=== PATIENT | female | born 1985 | race Caucasian/White ===

== ENCOUNTER → 2022-01-18 08:49 | Outpatient (BNVA) | payer MEDICAID, SELFPAY | PROVIDERS: PCP Nurse Practitioner Family; Visit Provider Nurse Practitioner Family | DX: E66.9 Obesity, unspecified (principal); F32.A Depression, unspecified; F41.9 Anxiety disorder, unspecified; G43.909 Migraine, unspecified, not intractable, without status migrainosus; J44.9 Chronic obstructive pulmonary disease, unspecified; K21.9 Gastro-esophageal reflux disease without esophagitis; T63.441A Toxic effect of venom of bees, accidental (unintentional), initial encounter; J30.2 Other seasonal allergic rhinitis; Z76.89 Persons encountering health services in other specified circumstances | CPT/HCPCS: 80053; 80061; 84443 ==

== ENCOUNTER → 2022-01-21 09:00 | Outpatient (BNVA) | payer MEDICAID, SELFPAY | PROVIDERS: PCP Nurse Practitioner Family; Referring Provider Nurse Practitioner Family; Visit Provider Surgery | DX: K21.9 Gastro-esophageal reflux disease without esophagitis (principal); R63.4 Abnormal weight loss; R10.13 Epigastric pain | CPT/HCPCS: 99203 ==

== ENCOUNTER 2022-02-13 09:25 | Emergency (ER) | payer MEDICAID, SELFPAY ==
[2022-02-13 09:32] VITALS: BP 132/76; PULSE 83; RESP 14; TEMP 36.7; O2SAT 98; BMI 33.7
--- NOTE | 2022-02-13 09:48 | ED_ITS ---
HPI - Abdominal Pain General: Chief Complaint: Abdominal Pain Stated Complaint: abd pain Time Seen by Provider: 02/13/22 09:38 Source: patient Mode of arrival: ambulatory Limitations: no limitations History of Present Illness: 37-year-old female comes in complaining of epigastric upper abdominal pain for going on for last several months is seen surgery is scheduled for an EGD previously had a cholecystectomy. She has chronic diarrhea which is unchanged denies any medication melena symptoms cough cramps no dysuria urgency or frequency. No fever sweats or chills MD elicited complaint: abdominal pain Pertinent past history: other (Chronic diarrhea) Onset (ago): month(s) Pain Consistency: intermittent Location: Epigastric Severity: moderate Quality: cramping Radiation: LUQ and RUQ Exacerbating factors: nothing Relieving factors: nothing Associated Symptoms: Reports nausea and poor appetite; Denies anorexia, belching, bloating, change in bowel habits, change in stool character, chills, coffee ground emesis, constipation, GI cramping, diarrhea, dyspepsia, dysuria, excessive flatus, fever(s), heartburn, hematochezia, hematuria, hematemesis, fecal incontinence, loose stools, melena, syncope and vomiting Review of Systems Const: Reports: change in appetite; Denies: fever(s), chills, fatigue or malaise ENMT: Denies: throat pain, ear or mastoid pain, nasal discharge or nasal con gestion Card: Denies: chest pain, palpitations, irregular heart rhythm or syncope Resp: Denies: dyspnea, productive cough or non-productive cough GI: Reports: abdominal pain and nausea; Denies: vomiting, hematemesis, coffee ground emesis, heartburn, diarrhea, constipation, bloating, GI cramping, belching, excessive flatus, fecal incontinence, change in bowel habits, change in stool character, hematochezia or melena : Denies: flank pain, difficulty voiding, dysuria, urinary frequency or hematuria Skin/Breast: Denies: rash or pruritus PFSH ED PFSH: Medical History Anxiety Chronic GERD COPD (chronic obstructive pulmonary disease) Depression Migraines Seasonal allergies Surgical History History of carpal tunnel surgery of left wrist Hx of cholecystectomy Family History Father Diabetes Insulin Dependant Mother Diabetes Non insulin dependant CHF (congestive heart failure) Social History Smoking and tobacco status: never smoked Physical Exam Const: COMMON NORMALS: no acute distress GENERAL APPEARANCE: cooperative and comfortable ORIENTATION/CONSCIOUSNESS: Yes awake, Yes oriented to person, Yes oriented to place and Yes oriented to time HENMT: COMMON NORMALS: normocephalic and atraumatic HEAD & SCALP: normocephalic and atraumatic Resp: COMMON NORMALS: normal respiratory effort, No retractions, No use of ac cessory muscles and clear to auscultation bilaterally AUSCULTATION: clear to auscultation bilaterally Cardio: COMMON NORMALS: regular rate, regular rhythm and No murmurs present (Cardio) RATE: regular rate RHYTHM: regular rhythm GI: COMMON NORMALS: No hepatosplenomegaly present AUSCULTATION: Yes normoactive bowel sounds PALPATION: Yes Tenderness to palpation present (GI) (Epigastric), No Guarding due to palpation present (GI) and Yes No hepatosplenomegaly present Extremity: COMMON NORMALS: normal to inspection, capillary refill normal, no clubbing, cyanosis or edema, no calf tenderness and no pedal edema Neuro: SENSORIUM/ORIENTATION: Yes oriented to person, Yes oriented to place and Yes oriented to time Skin: COMMON NORMALS: no rashes or lesions noted GENERAL SKIN EXAM: no rashes or lesions noted Course Vital Signs: Vital signs: Vital Signs Temperature 97.8 F 02/13/22 09:55 Pulse Rate 80 02/13/22 09:55 Respiratory Rate 14 02/13/22 09:32 Blood Pressure 113/86 02/13/22 09:55 Pulse Oximetry 98 02/13/22 09:55 MDM - Abdominal Pain Medical Decision Making Labs and imaging unremarkable. Discharge patient home increase her Protonix add Carafate follow-up with primary care surgery for endoscopy as scheduled. Medical Records I reviewed the patient's medical records. Lab Data I reviewed the patient's lab results. : 02/13/22 09:50 02/13/22 09:50 Labs/Radiology: Radiology Impressions Abdomen/Pelvis CT 02/13/22 09:57 IMPRESSION: No acute findings. Laboratory Results WBC 8.2 10^3/uL (4.0-10.0) 02/13/22 09:50 RBC 4.49 10^6/uL (4.1-5.3) 02/13/22 09:50 Hgb 13.3 g/dL (11.5-15.3) 02/13/22 09:50 Hct 41.2 % (37.0-47.0) 02/13/22 09:50 MCV 91.8 fl (81-99) 02/13/22 09:50 MCH 29.6 pg (28.0-34.0) 02/13/22 09:50 MCHC 32.3 g/dL (30.0-36.0) 02/13/22 09:50 RDW 12.4 % (12.1-15.1) 02/13/22 09:50 Plt Count 253 10^3/cmm (130-400) 02/13/22 09:50 MPV 10.9 fL (7.4-10.4) H 02/13/22 09:50 Neut % (Auto) 55.0 % 02/13/22 09:50 Lymph % (Auto) 36.3 % 02/13/22 09:50 [place] % (Auto) 4.8 % 02/13/22 09:50 Eos % (Auto) 3.1 % 02/13/22 09:50 Baso % (Auto) 0.6 % 02/13/22 09:50 Neut # (Auto) 4.49 10^3/uL (1.8-7.7) 02/13/22 09:50 Lymph # (Auto) 3.0 10^3/uL (0.8-4.8) 02/13/22 09:50 [place] # (Auto) 0.4 10^3/uL (0.2-0.9) 02/13/22 09:50 Eos # (Auto) 0.3 10^3/uL (0.0-0.8) 02/13/22 09:50 Baso # (Auto) 0.1 10^3/uL (0.0-0.1) 02/13/22 09:50 Nucleated RBC % (auto) 0 % 02/13/22 09:50 Nucleated RBCs # 0.0 /100WBC 02/13/22 09:50 Sodium 139 mmol/L (136-145) 02/13/22 09:50 Potassium 4.0 mmol/L (3.5-5.1) 02/13/22 09:50 Chloride 105 mmol/L (98-107) 02/13/22 09:50 Carbon Dioxide 24 mmol/L (22-29) 02/13/22 09:50 Anion Gap 14.0 (5-19) 02/13/22 09:50 BUN 4 mg/dL (6-20) L 02/13/22 09:50 Creatinine 0.6 mg/dL (0.5-0.9) 02/13/22 09:50 GFR Calculation 111.9 mL/min (90-130) 02/13/22 09:50 Glucose 100 mg/dL (65-115) 02/13/22 09:50 Calculated Osmolality 285 mOsm/kg (285-295) 02/13/22 09:50 Calcium 8.6 mg/dL (8.5-10.5) 02/13/22 09:50 Total Bilirubin 0.2 mg/dL (0.15-1.2) 02/13/22 09:50 AST 14 U/L (0-32) 02/13/22 09:50 ALT 16 U/L (0-33) 02/13/22 09:50 Alkaline Phosphatase 82 IU/L (35-105) 02/13/22 09:50 Total Protein 7.2 g/dL (6.6-8.7) 02/13/22 09:50 Albumin 4.3 g/dL (3.5-5.2) 02/13/22 09:50 Globulin 2.9 g/dL (1.3-4.6) 02/13/22 09:50 Lipase 50 U/L (13-60) 02/13/22 09:50 HCG, Qual Negative (Negative) 02/13/22 10:11 Urine Color Yellow (Yellow) 02/13/22 10:00 Urine Appearance Sl hazy (CLEAR) 02/13/22 10:00 Urine pH 5 (5-7) 02/13/22 10:00 Ur Specific [place] 1.020 (1.005-1.030) 02/13/22 10:00 Urine Protein Neg (Negative) 02/13/22 10:00 Urine Glucose (UA) Norm (Normal) 02/13/22 10:00 Urine Ketones Negative (Negative) 02/13/22 10:00 Urine Blood 3+ (Negative) H 02/13/22 10:00 Urine Nitrate Negative (Negative) 02/13/22 10:00 Urine Bilirubin 1+ (Negative) H 02/13/22 10:00 Urine Urobilinogen Norm mg/dL (Negative) 02/13/22 10:00 Ur Leukocyte Esterase Trace (Negative) H 02/13/22 10:00 Urine RBC 0-4 /hpf (0-2) H 02/13/22 10:00 Urine WBC 0-4 /hpf (0-5) H 02/13/22 10:00 Ur Squamous Epith Cells 0-4 /hpf (0-5) H 02/13/22 10:00 Amorphous Sediment Not Reportable 02/13/22 10:00 Urine Bacteria 1+ /hpf (NONE) H 02/13/22 10:00 Urine Mucus 2+ /hpf 02/13/22 10:00 Discharge Plan Discharge Patient Disposition: Home Clinical Impression: Epigastric abdominal pain Condition: Stable Prescriptions: New Carafate 1 gram tablet 1 g PO Q6H PRN (Reason: stomach upset) 28 Days Qty: 112 0RF Changed Protonix 40 mg tablet,delayed release (DR/EC) 40 mg PO BID 30 Days Qty: 30 0RF No Action epinephrine [EpiPen 2-Cory] 0.3 mg/0.3 mL auto-injector 0.3 mg IM Q4H PRN (Reason: anaphylaxis) Qty: 2 0RF albuterol sulfate [ProAir HFA] 90 mcg/actuation HFA aerosol inhaler 2 puff inhalation QID PRN (Reason: shortness of breath or wheezing) Qty: 8.5 11RF budesonide-formoterol [Symbicort] 160-4.5 mcg/actuation HFA aerosol inhaler 2 puff inhalation Q12H Qty: 10.2 11RF propranolol 20 mg tablet 20 mg PO DAILY Qty: 30 0RF rizatriptan [Maxalt-COMMUNITY RELATIONS DIRECTOR] 10 mg tablet,disintegrating See Rx Instructions PO .COMPLEX Qty: 8 1RF Rx Instructions: take 1 tab at onset of headache; if no relief may repeat 1 tab after at least 2 hrs; max = 3 tabs/24 hr PO sertraline [Zoloft] 50 mg tablet 50 mg PO DAILY 30 Days Qty: 30 6RF Discharge Orders: Discharge ED (Routine); Ordered 02/13/22 Ordered By: Td Rosado Referrals: Yudith Menezes [facility] CRITIC [Primary Care Provider] - Discharge Diet: Full LIquid Discharge Activity: Resume usual activity Patient Instructions: Diet for Stomach Ulcers and Gastritis (ED), GERD (Gastroesophageal Reflux Disease) (ED), Abdominal Pain (ED), Opioid Safety Activity Restrictions/Additional Instructions: Full liquid diet for 24 to 48 hours. Use Carafate every 6 hours as needed for any stomach upset do not take within 45 minutes of taking pantoprazole. Keep your scheduled appointment with Dr. Villasenor. Coding Level of Care Code ED Sales And Retail Management Recruiter for Chg Fwd Exam Detailed
[2022-02-13] MEDS: sodium chloride 0.9% 1,000 ML 999 ML IV (09:51)
[2022-02-13] MEDS: lidocaine 2% viscous 15 ML, aluminum-mag hydrox-simethicon 30 ML, sucralfate oral liq 1 GM PO (09:51)
[2022-02-13] MEDS: ondansetron 2 mg/ML SDV 2 mL 4 MG IVP (09:51)
[2022-02-13 09:55] VITALS: BP 113/86; PULSE 80; TEMP 36.6; O2SAT 98
--- NOTE | 2022-02-13 09:57 | CTR_ITS ---
PROCEDURE INFORMATION: Exam: CT Abdomen And Pelvis Without Contrast Exam date and time: 02/13/2022 10:46 AM Age: 37 years old Clinical indication: Abdominal pain; Epigastric; Prior surgery; Surgery type: Gb TECHNIQUE: Imaging protocol: Computed tomography of the abdomen and pelvis without contrast. Radiation optimization: All CT scans at this facility use at least one of these dose optimization techniques: automated exposure control; mA and/or kV adjustment per patient size (includes targeted exams where dose is matched to clinical indication); or iterative reconstruction. COMPARISON: No relevant prior studies available. RADIATION DOSE METRICS: Total DLP (mGy-cm): 1229.31 FINDINGS: Liver: Normal. No mass. Gallbladder and bile ducts: The gallbladder is been removed. Pancreas: Normal. No ductal dilation. Spleen: Normal. No splenomegaly. Adrenal glands: Normal. No mass. Kidneys and ureters: Normal. No hydronephrosis. Stomach and bowel: Scattered colonic diverticula. Appendix: Normal right lower quadrant visualized appendix. Intraperitoneal space: Unremarkable. No free air. No significant fluid collection. Vasculature: Unremarkable. No abdominal aortic aneurysm. Lymph nodes: Unremarkable. No enlarged lymph nodes. Urinary bladder: Unremarkable as visualized. Reproductive: Tampon in the vagina. Bones/joints: Unremarkable. No acute fracture. Soft tissues: Unremarkable. CT/CT abdomen pelvis con [id number] IMPRESSION: No acute findings.
[2022-02-13 09:59] LABS: Basophils # 0.1 10^3/uL (0.0-0.1); Basophils % 0.6 %; Eosinophils # 0.3 10^3/uL (0.0-0.8); Eosinophils % 3.1 %; Hematocrit 41.2 % (37.0-47.0); Hemoglobin 13.3 g/dL (11.5-15.3); Lymphocytes % 36.3 %; Mean Corpuscular HGB Conc 32.3 g/dL (30.0-36.0); Mean Corpuscular Hemoglobin 29.6 pg (28.0-34.0); Mean Corpuscular Volume 91.8 fl (81-99); Mean Platelet Volume 10.9 fL (7.4-10.4); Monocytes # 0.4 10^3/uL (0.2-0.9); Monocytes % 4.8 %; Neutrophils # 4.49 10^3/uL (1.8-7.7); Nucleated Red Blood Cells % 0 %; Platelet Count 253 10^3/cmm (130-400); Red Blood Count 4.49 10^6/uL (4.1-5.3); Red Cell Distribution Width 12.4 % (12.1-15.1); White Blood Count 8.2 10^3/uL (4.0-10.0)
[2022-02-13 10:09] LABS: Add Urine Microscopic? YES; Bilirubin Urine 1+ (Negative); Blood Urine 3+ (Negative); Glucose Urine UA Norm (Normal); Ketones Urine Negative (Negative); Leukocyte Esterase Urine Trace (Negative); Nitrate Urine Negative (Negative); Protein Urine Neg (Negative); Urine Appearance SL Hazy (CLEAR); Urine Color Yellow (Yellow); Urobilinogen Urine Norm (Negative); pH Urine 5 (5-7)
[2022-02-13 10:11] LABS: Bacteria Urine 1+ /hpf; Mucus Urine 2+ /hpf; RBC Urine 0-4 /hpf (0-2); Squamous Epithelial Cell Urine 0-4 /hpf (0-5); WBC Urine 0-4 /hpf (0-5)
[2022-02-13 10:12] LABS: Add Urine Culture? No
[2022-02-13 10:19] LABS: Alanine Aminotransferase 16 U/L (0-33); Albumin Level 4.3 g/dL (3.5-5.2); Alkaline Phosphatase 82 IU/L (35-105); Aspartate Amino Transferase 14 U/L (0-32); Blood Urea Nitrogen 4 mg/dL (6-20); Calcium 8.6 mg/dL (8.5-10.5); Carbon Dioxide 24 mmol/L (22-29); Chloride 105 mmol/L (98-107); Globulin 2.9 g/dL (1.3-4.6); Glomerular Filtration Rate 111.9 mL/min (90-130); Glucose 100 mg/dL (65-115); Lipase 50 U/L (13-60); Osmolality Calculated 285 mOsm/kg (285-295); Sodium 139 mmol/L (136-145); Total Bilirubin 0.2 mg/dL (0.15-1.2); Total Protein 7.2 g/dL (6.6-8.7)
[2022-02-13 10:42] LABS: HCG, Serum Qual Negative (Negative)
== END 2022-02-13 11:58 | disposition home or self-care (01) ==
PROVIDERS: Emergency Provider Family Medicine; PCP Nurse Practitioner Family
DX: R10.13 Epigastric pain (principal); J44.9 Chronic obstructive pulmonary disease, unspecified
CPT/HCPCS: 74176; 80053; 81001; 83690; 84703; 85025; 96374; 99285; J2405; J7030

== ENCOUNTER 2022-03-01 07:14 | Outpatient (CLI) | payer MEDICAID, SELFPAY ==
--- NOTE | 2022-03-01 07:24 | MM_ITS ---
WS: [id number] SCREENING DIGITAL BREAST TOMOSYNTHESIS MAMMOGRAM WITH CAD HISTORY: screening COMPARISON: None available. Bilateral CC and MLO with tomosynthesis views submitted. Synthetic mammography reviewed. Computer aid ed detection analyzed. Breast composition: There are scattered areas of fibroglandular density. No suspicious masses, microc alcifications or architectural distortion. MM/[place] [id number] IMPRESSION: BI-RADS: 1-Negative FOLLOW UP: 1 Year Follow-up
== END 2022-03-01 07:15 | disposition home or self-care (01) ==
LOC: RAD 07:15
PROVIDERS: PCP Nurse Practitioner Family; Visit Provider Nurse Practitioner Family
DX: Z12.31 Encounter for screening mammogram for malignant neoplasm of breast (principal); Z80.3 Family history of malignant neoplasm of breast
CPT/HCPCS: 77063; 77067

== ENCOUNTER 2022-03-24 09:25 | Day surgery (SDC) | payer MEDICAID, SELFPAY ==
[2022-03-22 13:08] VITALS: BMI 34.0
[2022-03-24 09:47] LABS: OR HCG Qualitative Urine Negative (Negative)
[2022-03-24 09:48] VITALS: BP 124/84; PULSE 86; RESP 16; TEMP 36.2; O2SAT 95
--- NOTE | 2022-03-24 09:48 | PM.HP ---
Providers/Chief Complaint Primary Care Provider: Yudith Menezes NP Chief Complaint: Abdominal pain History of Present Illness Christy Barlow is a 37 year old female with abdominal pain and a family history of duodenal cancer who comes in for EGD Review of Systems General: Reports: 10 or more systems reviewed and unremarkable except in HPI and below Medications/Allergies Home Medications Medication Instructions Recorded Confirmed Last Taken Type albuterol sulfate 90 mcg/actuation 2 puff inhalation QID PRN 01/15/22 03/22/22 Unknown Rx aerosol inhaler (ProAir HFA) shortness of breath or wheezing #8.5 grams budesonide-formoterol HFA 160 2 puff inhalation Q12H #10.2 grams 01/15/22 03/22/22 Unknown Rx mcg-4.5 mcg/actuation aerosol inhaler (Symbicort) epinephrine 0.3 mg/0.3 mL 0.3 mg (0.3 mL) IM Q4H PRN 01/15/22 03/22/22 Unknown Rx injection, auto-injector (EpiPen anaphylaxis #2 ea 2-Cory) propranolol 20 mg tablet 20 mg PO DAILY #30 tabs 01/15/22 03/22/22 Unknown Rx rizatriptan 10 mg disintegrating See Rx Instructions PO .COMPLEX #8 01/15/22 03/22/22 Unknown Rx tablet (Maxalt-ENERGY CROP FARMER) tabs sertraline 50 mg tablet (Zoloft) 50 mg PO DAILY 30 days #30 tabs 02/12/22 03/22/22 Unknown Rx pantoprazole 40 mg tablet,delayed 40 mg PO BID 30 days #30 tabs 02/13/22 03/22/22 Unknown Rx release (Protonix) Allergies Allergy/AdvReac Type Severity Reaction Status Date / Time No Known Allergies Allergy Verified 03/24/22 09:47 PFSH Acute PFSH: Medical History Anxiety Chronic GERD COPD (chronic obstructive pulmonary disease) Depression Migraines Seasonal allergies Surgical History History of carpal tunnel surgery of left wrist Hx of cholecystectomy Family History Father Diabetes Insulin Dependant Mother Diabetes Non insulin dependant CHF (congestive heart failure) Social History Smoking and tobacco status: never smoked Vitals/I&O/Wt Weight last 48 hrs Weight 211 lb A&P Assessment and plan (1) Chronic GERD: Status: Acute (2) Epigastric abdominal pain: Status: Acute Plan EGD The risks and benefits of the procedure, including bleeding, infection, intestinal perforation requiring surgery, missed lesion, or explained to the patient. He is understanding of the risks and wishes to proceed. Attestations Medical Necessity Statement*: Patient will be discharged home Coding Level of Care Code Acute Manager Social Media for Chg Fwd Diagnoses Chronic GERD K21.9 Epigastric abdominal pain R10.13
[2022-03-24] MEDS: sodium chloride 0.9% 1,000 ML 30 ML IV (09:51)
--- NOTE | 2022-03-24 10:13 | P.ANESASSM_ITS ---
Pre-Anesthetic Assessment Height/Weight: Height 1.68 m Weight 95.708 kg Temp Pulse Resp BP Pulse Ox O2 Del Method 97.2 F L 86 16 124/84 95 03/24/22 09:48 03/24/22 09:48 03/24/22 09:48 03/24/22 09:48 03/24/22 09:48 03/24/22 09:48 Operation Date: 03/24/22 10:30 Proposed Procedures p EGD 61921, k21.9(Not Applicable) - Tyron Villasenor DO Familial anesthetic complications: none Was Beta Trini taken within 24 hours: Yes Was Clonidine taken within 24 hours: N/A Last intake: Intake Last Liquid Date 03/23/22 Last Liquid Time 22:00 Last Solid Date 03/23/22 Last Solid Time 11:00 Social No alcohol and No tobacco Exam alert, oriented x 3, clear to auscultation bilaterally and regular rate & rhythm Airway Submandibular: within normal limits Cervical ROM: within normal limits Mallampati: Class II Dentition: chipped Pulmonary Chronic Obstructive Pulmonary Disease Metabolic Morbid Obesity Neuropsych Anxiety, Depression and Headache Anesthetic Plan ASA status: 2 Anesthesia: MAC Medications/Allergies Home Medications Medication Instructions Recorded Confirmed Last Taken Type albuterol sulfate 90 mcg/actuation 2 puff inhalation QID PRN 01/15/22 03/24/22 Unknown Rx aerosol inhaler (ProAir HFA) shortness of breath or wheezing #8.5 grams budesonide-formoterol HFA 160 2 puff inhalation Q12H #10.2 grams 01/15/22 03/24/22 Unknown Rx mcg-4.5 mcg/actuation aerosol inhaler (Symbicort) epinephrine 0.3 mg/0.3 mL 0.3 mg (0.3 mL) IM Q4H PRN 01/15/22 03/24/22 Unknown Rx injection, auto-injector (EpiPen anaphylaxis #2 ea 2-Cory) propranolol 20 mg tablet 20 mg PO DAILY #30 tabs 01/15/22 03/24/22 03/23/22 Rx rizatriptan 10 mg disintegrating See Rx Instructions PO .COMPLEX #8 01/15/22 03/24/22 03/23/22 Rx tablet (Maxalt-AQUACULTURE DIRECTOR) tabs sertraline 50 mg tablet (Zoloft) 50 mg PO DAILY 30 days #30 tabs 07/08/22 08/1 7/22 08/16/22 Rx pantoprazole 40 mg tablet,delayed 40 mg PO BID 30 days #30 tabs 02/13/22 03/24/22 03/23/22 Rx release (Protonix) Allergies Allergy/AdvReac Type Severity Reaction Status Date / Time No Known Allergies Allergy Verified 03/24/22 09:47 Current Medications Generic Name Dose Route Start Last Admin Trade Name Gavin PRN Reason Stop Dose Admin Sodium Chloride 1,000 mls @ 30 mls/hr 03/24/22 09:30 03/24/22 09:51 Sodium Chloride 0.9% IV 03/25/22 09:29 30 mls/hr .Q24H RADHA Administration PFSH Anesthesia Medical History Anxiety Chronic GERD COPD (chronic obstructive pulmonary disease) Depression Migraines Seasonal allergies Surgical History History of carpal tunnel surgery of left wrist Hx of cholecystectomy Family History Father Diabetes Insulin Dependant Mother Diabetes Non insulin dependant CHF (congestive heart failure) Social History Smoking and tobacco status: never smoked Data Anesthesia Cardiac Studies: No Data to Display
[2022-03-24 10:44] VITALS: BP 110/69; PULSE 68; RESP 16; TEMP 36.4; O2SAT 94
[2022-03-24 10:49] VITALS: BP 110/72; PULSE 64; RESP 16; O2SAT 95
[2022-03-24 10:59] VITALS: BP 118/76; PULSE 68; RESP 18; O2SAT 94
--- NOTE | 2022-03-24 12:44 | ANE.PACU2 ---
Inpatient post-anesthesia follow up: Airway intact: Yes Vital signs: Temperature 97.6 F Pulse Rate 68 Respiratory Rate 18 Blood Pressure 118/76 Pulse Oximetry 94 Oxygen Delivery Me thod Room Air Oxygen Flow Rate 2 Fraction of Inspir ed Oxygen Hydration adequate: Yes Nausea and vomiting: No Pain level: 2 Mental status: Baseline
== END 2022-03-24 11:20 | disposition home or self-care (01) ==
PROVIDERS: Anesthesiology; PCP Nurse Practitioner Family; Visit Provider Surgery
PROC: 0DJ08ZZ Inspection of Upper Intestinal Tract, Via Natural or Artificial Opening Endoscopic (ICD-10-PCS; CPT 43235; principal; 2022-03-24 10:30)
DX: R13.10 Dysphagia, unspecified (principal); K29.50 Unspecified chronic gastritis without bleeding; B96.81 Helicobacter pylori [H. pylori] as the cause of diseases classified elsewhere; K21.9 Gastro-esophageal reflux disease without esophagitis; K20.90 Esophagitis, unspecified without bleeding; Z80.0 Family history of malignant neoplasm of digestive organs; F41.9 Anxiety disorder, unspecified; F32.A Depression, unspecified; J44.9 Chronic obstructive pulmonary disease, unspecified; E66.01 Morbid (severe) obesity due to excess calories; Z68.34 Body mass index [BMI] 34.0-34.9, adult
CPT/HCPCS: 43239; 81025; 84703; 88305; 88342; J2704; J7030

== ENCOUNTER → 2022-04-07 14:47 | Outpatient (BNVA) | payer MEDICAID, SELFPAY | PROVIDERS: PCP Nurse Practitioner Family; Visit Provider Surgery | DX: Z09 Encounter for follow-up examination after completed treatment for conditions other than malignant neoplasm (principal); K21.9 Gastro-esophageal reflux disease without esophagitis; K29.80 Duodenitis without bleeding; B96.81 Helicobacter pylori [H. pylori] as the cause of diseases classified elsewhere; K29.70 Gastritis, unspecified, without bleeding | CPT/HCPCS: 99213 ==

== ENCOUNTER 2022-07-18 09:00 | Emergency (ER) | payer MEDICAID, SELFPAY ==
--- NOTE | 2022-07-18 09:10 | W.ED.PSYCHS ---
HPI - Psych General: Chief Complaint: Psychiatric Symptoms Stated Complaint: psych evaluation Time Seen by Provider: 07/18/22 09:10 History of Present Illness: Ms. Barlow is a 37-year-old lady with history of depression and anxiety presenting to the emergency department due to uncontrolled depression. Her symptoms have become the worst that they have ever been. They are not debilitating and she finds her self unable to sleep, eat, lack of enjoyment in any activity, and unable to stop crying. This is significantly interfering with her ability to function. She denies suicidal or homicidal ideation. Denies recent inpatient psychiatric hospitalization. She reports a history of similar and has previously been on sertraline however this did not help and exacerbated her underlying headaches. No other specific changes in health, exacerbating, or alleviating factors identified. Onset (ago): day(s) Duration: getting worse Relieving factors: none Exacerbating factors: none Associated psychiatric symptoms: depression Treatments prior to arrival: none Review of Systems General: Reports: 10 or more systems reviewed and unremarkable except in HPI and below PFSH ED PFSH: Medical History Anxiety Chronic GERD COPD (chronic obstructive pulmonary disease) Depression Migraines Seasonal allergies Surgical History History of carpal tunnel surgery of left wrist Hx of cholecystectomy Family History Father Diabetes Insulin Dependant Mother Diabetes Non insulin dependant CHF (congestive heart failure) Social History Smoking and tobacco status: former smoker Physical Exam Const: COMMON NORMALS: alert GENERAL APPEARANCE: cooperative and well developed HENMT: COMMON NORMALS: normocephalic and atraumatic HEAD & SCALP: normocephalic and atraumatic Eye: COMMON NORMALS: conjunctivae normal CONJUNCTIVA: Yes conjunctivae normal SCLERA: sclerae normal Neck/C-Spine: COMMON NORMALS: supple GENERAL: Yes trachea midline Resp: COMMON NORMALS: clear to auscultation bilaterally EFFORT & INSPECTION: Yes able to speak in complete sentences AUSCULTATION: clear to auscultation bilaterally Cardio: COMMON NORMALS: regular rate and regular rhythm RATE: regular rate RHYTHM: regular rhythm GI: COMMON NORMALS: Soft to palpation PALPATION: Yes Soft to palpation and No Tenderness to palpation present (GI) Extremity: GENERAL: Yes normal exam except as noted and No edema Neuro: COMMON NORMALS: moves all extremities SENSORIUM/ORIENTATION: Yes alert and No Orientation impaired Psych: ACTIVITY/MOTOR BEHAVIOR: Yes Avoids eye contact (attititude/behavior) MOOD & AFFECT: Yes depressed mood and Yes tearful Course Vital Signs: Vital signs: Vital Signs Pulse Rate 86 07/18/22 14:03 Respiratory Rate 18 07/18/22 14:03 Blood Pressure 127/86 07/18/22 14:03 Pulse Oximetry 97 07/18/22 14:03 [facility] - Psych Medical Decision Making 37-year-old lady presenting to the emergency department due to uncontrolled depression. On initial exam patient is tearful, avoids eye contact, appears depressed. No evidence of injuries on clinical exam and patient is nontoxic without other medical complaints. EKG shows sinus rhythm, no STEMI. Unremarkable hematologic panel. Metabolic panel with mild hyponatremia, patient can adequately orally rehydrate. TSH normal. Negative hCG. Toxic ingestions negative. UDS positive for THC. Negative urinalysis. Based on clinical exam and reported history there is no indication for imaging. Given severity of patient's symptoms including interference with normal daily function and uncontrolled tearfulness I believe that inpatient management is appropriate. Based on ED evaluation at this point there is no obvious condition that would preclude the patient from inpatient management of psychiatric concerns. We do not currently have adult inpatient psych beds available and therefore we will look for placement. I discussed this with the patient and she is agreeable with plan. Subsequently, during the process of attempting to find placement patient decided that she wants to leave in favor of outpatient follow-up. She denies suicidal or homicidal ideation. I believe that she is capacity to make healthcare decisions. I do not believe that have grounds to hold the patient against her will. She left AGAINST MEDICAL ADVICE. Medical Records I reviewed the patient's medical records. Lab Data I reviewed the patient's lab results. 07/18/22 10:28 07/18/22 10:28 Laboratory Results WBC 8.7 10^3/uL (4.0-10.0) 07/18/22 10:28 RBC 4.54 10^6/uL (4.1-5.3) 07/18/22 10:28 Hgb 13.9 g/dL (11.5-15.3) 07/18/22 10:28 Hct 42.6 % (37.0-47.0) 07/18/22 10:28 MCV 93.8 fl (81-99) 07/18/22 10:28 MCH 30.6 pg (28.0-34.0) 07/18/22 10:28 MCHC 32.6 g/dL (30.0-36.0) 07/18/22 10:28 RDW 12.4 % (12.1-15.1) 07/18/22 10:28 Plt Count 273 10^3/cmm (130-400) 07/18/22 10:28 MPV 10.4 fL (7.4-10.4) 07/18/22 10:28 Neut % (Auto) 63.1 % 07/18/22 10:28 Lymph % (Auto) 29.3 % 07/18/22 10:28 [place] % (Auto) 4.6 % 07/18/22 10:28 Eos % (Auto) 2.0 % 07/18/22 10:28 Baso % (Auto) 0.8 % 07/18/22 10:28 Neut # (Auto) 5.46 10^3/uL (1.8-7.7) 07/18/22 10:28 Lymph # (Auto) 2.5 10^3/uL (0.8-4.8) 07/18/22 10:28 [place] # (Auto) 0.4 10^3/uL (0.2-0.9) 07/18/22 10:28 Eos # (Auto) 0.2 10^3/uL (0.0-0.8) 07/18/22 10:28 Baso # (Auto) 0.1 10^3/uL (0.0-0.1) 07/18/22 10:28 Nucleated RBC % (auto) 0 % 07/18/22 10:28 Nucleated RBCs # 0.0 /100WBC 07/18/22 10:28 Sodium 130 mmol/L (136-145) L 07/18/22 10:28 Potassium 4.4 mmol/L (3.5-5.1) 07/18/22 10:28 Chloride 99 mmol/L (98-107) 07/18/22 10:28 Carbon Dioxide 25 mmol/L (22-29) 07/18/22 10:28 Anion Gap 10.4 (5-19) 07/18/22 10:28 BUN 8 mg/dL (6-20) 07/18/22 10:28 Creatinine 0.6 mg/dL (0.5-0.9) 07/18/22 10:28 GFR Calculation 111.9 mL/min (90-130) 07/18/22 10:28 Glucose 92 mg/dL (65-115) 07/18/22 10:28 Calculated Osmolality 268 mOsm/kg (285-295) L 07/18/22 10:28 Calcium 9.1 mg/dL (8.5-10.5) 07/18/22 10:28 Total Bilirubin 0.2 mg/dL (0.15-1.2) 07/18/22 10:28 AST 12 U/L (0-32) 07/18/22 10:28 ALT 13 U/L (0-33) 07/18/22 10:28 Alkaline Phosphatase 76 U/L (35-105) 07/18/22 10:28 Total Protein 7.4 g/dL (6.6-8.7) 07/18/22 10:28 Albumin 3.9 g/dL (3.5-5.2) 07/18/22 10:28 Globulin 3.5 g/dL (1.3-4.6) 07/18/22 10:28 TSH 1.10 uIU/mL (0.27-4.20) 07/18/22 10:28 HCG, Qual Negative (Negative) 07/18/22 09:56 Urine Color Yellow (Yellow) 07/18/22 09:56 Urine Appearance Clear (CLEAR) 07/18/22 09:56 Urine pH 5 (5-7) 07/18/22 09:56 Ur Specific [place] 1.020 (1.005-1.030) 07/18/22 09:56 Urine Protein Neg (Negative) 07/18/22 09:56 Urine Glucose (UA) Norm (Normal) 07/18/22 09:56 Urine Ketones 1+ (Negative) H 07/18/22 09:56 Urine Blood Neg (Negative) 07/18/22 09:56 Urine Nitrate Negative (Negative) 07/18/22 09:56 Urine Bilirubin Neg (Negative) 07/18/22 09:56 Urine Urobilinogen Norm mg/dL (Negative) 07/18/22 09:56 Ur Leukocyte Esterase Negative (Negative) 07/18/22 09:56 Salicylates < 0.3 mg/dL (3-10) L 07/18/22 10:28 Urine Opiates Screen Negative ng/mL (Negative) 07/18/22 09:56 Acetaminophen < 5.0 ug/mL (10-30) L 07/18/22 10:28 Ur Barbiturates Screen Negative ng/mL (Negative) 07/18/22 09:56 Ur Phencyclidine Scrn Negative ng/mL (Negative) 07/18/22 09:56 Ur Amphetamines Screen Negative ng/mL (Negative) 07/18/22 09:56 U Benzodiazepines Scrn Negative ng/mL (Negative) 07/18/22 09:56 Urine Cocaine Screen Negative ng/mL (Negative) 07/18/22 09:56 U Marijuana (THC) Screen Positive ng/mL (Negative) H 07/18/22 09:56 SARS-CoV-2 Ag (Rapid) negative (Negative) 07/18/22 11:47 Discharge Plan Discharge Patient Disposition: Left Against Medical Advice Clinical Impression: Depression Condition: Stable Prescriptions: No Action epinephrine [EpiPen 2-Cory] 0.3 mg/0.3 mL auto-injector 0.3 mg IM Q4H PRN (Reason: anaphylaxis) Qty: 2 0RF albuterol sulfate [ProAir HFA] 90 mcg/actuation HFA aerosol inhaler 2 puff inhalation QID PRN (Reason: shortness of breath or wheezing) Qty: 8.5 11RF budesonide-formoterol [Symbicort] 160-4.5 mcg/actuation HFA aerosol inhaler 2 puff inhalation Q12H Qty: 10.2 11RF propranolol 20 mg tablet 20 mg PO DAILY Qty: 30 0RF rizatriptan [Maxalt-JUNIOR PROGRAMMER ANALYST] 10 mg tablet,disintegrating See Rx Instructions PO .COMPLEX Qty: 8 1RF Rx Instructions: take 1 tab at onset of headache; if no relief may repeat 1 tab after at least 2 hrs; max = 3 tabs/24 hr PO amoxicillin 500 mg capsule 1,000 mg PO BID 14 Days Qty: 56 0RF clarithromycin 500 mg tablet 500 mg PO BID 14 Days Qty: 28 0RF pantoprazole [Protonix] 40 mg tablet,delayed release (DR/EC) 40 mg PO BID 14 Days Qty: 28 0RF sertraline [Zoloft] 50 mg tablet 50 mg PO DAILY 30 Days Qty: 30 6RF pantoprazole [Protonix] 40 mg tablet,delayed release (DR/EC) 40 mg PO BID 42 Days Qty: 84 0RF Referrals: Yudith Menezes NP [Primary Care Provider] - Coding Level of Care Code ED Hr Analyst for Chg Fwd Exam Comprehensive
[2022-07-18 09:46] VITALS: BP 127/86; PULSE 86; RESP 18; O2SAT 97
--- NOTE | 2022-07-18 09:49 | ECG_ITS ---
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 Measurements Intervals [place] Rate: 76 P: 46 MA: 142 QRS: 9 QRSD: 85 T: 24 QT: 370 QTc: 416 Interpretive Statements SINUS RHYTHM POSSIBLE ANTERIOR MYOCARDIAL INFARCTION , PROBABLY OLD [30 ms Q WAVE IN V3/V4, OR R < 0.2 mV IN V4] No previous ECG available for comparison Electronically Signed On 07-18-2022 12:53:40 OSTOMY RN by Julius Obando M.D. [id number]
[2022-07-18 10:08] LABS: HCG Qualitative Urine. Negative (Negative)
[2022-07-18 10:17] LABS: Amphetamines Screen Urine Negative (Negative); Barbiturates Screen Urine Negative (Negative); Benzodiazepines Screen Urine Negative (Negative); Cocaine Screen Urine Negative (Negative); Opiate Screen Urine Negative (Negative); PCP Screen Urine Negative (Negative); THC Screen Urine Positive (Negative)
[2022-07-18 10:45] LABS: Basophils # 0.1 10^3/uL (0.0-0.1); Basophils % 0.8 %; Eosinophils # 0.2 10^3/uL (0.0-0.8); Hematocrit 42.6 % (37.0-47.0); Hemoglobin 13.9 g/dL (11.5-15.3); Lymphocytes # 2.5 10^3/uL (0.8-4.8); Lymphocytes % 29.3 %; Mean Corpuscular HGB Conc 32.6 g/dL (30.0-36.0); Mean Corpuscular Hemoglobin 30.6 pg (28.0-34.0); Mean Corpuscular Volume 93.8 fl (81-99); Mean Platelet Volume 10.4 fL (7.4-10.4); Monocytes # 0.4 10^3/uL (0.2-0.9); Monocytes % 4.6 %; Neutrophils # 5.46 10^3/uL (1.8-7.7); Neutrophils % 63.1 %; Nucleated Red Blood Cells % 0 %; Platelet Count 273 10^3/cmm (130-400); Red Blood Count 4.54 10^6/uL (4.1-5.3); Red Cell Distribution Width 12.4 % (12.1-15.1); White Blood Count 8.7 10^3/uL (4.0-10.0)
[2022-07-18 11:21] LABS: Alanine Aminotransferase 13 U/L (0-33); Albumin Level 3.9 g/dL (3.5-5.2); Alkaline Phosphatase 76 U/L (35-105); Anion Gap 10.4 (5-19); Aspartate Amino Transferase 12 U/L (0-32); Blood Urea Nitrogen 8 mg/dL (6-20); Calcium 9.1 mg/dL (8.5-10.5); Carbon Dioxide 25 mmol/L (22-29); Chloride 99 mmol/L (98-107); Globulin 3.5 g/dL (1.3-4.6); Glomerular Filtration Rate 111.9 mL/min (90-130); Glucose 92 mg/dL (65-115); Osmolality Calculated 268 mOsm/kg (285-295); Potassium 4.4 mmol/L (3.5-5.1); Sodium 130 mmol/L (136-145); Total Bilirubin 0.2 mg/dL (0.15-1.2); Total Protein 7.4 g/dL (6.6-8.7)
[2022-07-18 11:23] LABS: Acetaminophen < 5.0 ug/mL (10-30); Salicylate < 0.3 mg/dL (3-10)
[2022-07-18 11:51] LABS: Add Urine Microscopic? NO; Charge for UA Resulting for Rev
[2022-07-18 11:58] LABS: Bilirubin Urine Neg (Negative); Blood Urine Neg (Negative); Glucose Urine UA Norm (Normal); Ketones Urine 1+ (Negative); Leukocyte Esterase Urine Negative (Negative); Nitrate Urine Negative (Negative); Protein Urine Neg (Negative); Urine Appearance Clear (CLEAR); Urine Color Yellow (Yellow); Urobilinogen Urine Norm (Negative); pH Urine 5 (5-7)
[2022-07-18 12:29] LABS: SARS Covid-2 Antigen negative (Negative)
[2022-07-18 14:03] VITALS: BP 127/86; PULSE 86; RESP 18; O2SAT 97
== END 2022-07-18 14:20 | disposition left against medical advice (07) ==
PROVIDERS: Emergency Provider Emergency Medicine; PCP Nurse Practitioner Family
DX: F32.A Depression, unspecified (principal); Z20.822 Contact with and (suspected) exposure to COVID-19; Z87.891 Personal history of nicotine dependence; J44.9 Chronic obstructive pulmonary disease, unspecified
CPT/HCPCS: 36415; 80053; 80306; 80307; 81003; 81025; 84443; 85025; 87426; 93005; 99284

== ENCOUNTER 2022-09-06 11:33 | Outpatient (CLI) | payer MEDICAID, SELFPAY ==
--- NOTE | 2022-09-06 12:15 | XRR_ITS ---
PROCEDURE INFORMATION: Exam: XR Lumbosacral Spine Exam date and time: 09/06/2022 12:17 PM Age: 37 years old Clinical indication: Low back pain; Additional info: Lumbar w/radiculopathy back pain TECHNIQUE: Imaging protocol: Radiologic exam of the lumbosacral spine. Views: 6 or more views. Including flexion and extension views. COMPARISON: CT abdomen pelvis wo con [id number] 02/13/2022 10:46 AM FINDINGS: Bones/joints: Partial sacralization of L5. No acute fracture. Normal alignment. Soft tissues: Unremarkable. XR/XR lumbar spine 6V w f/e [id number] IMPRESSION: No acute radiographic findings.
== END 2022-09-06 11:34 | disposition home or self-care (01) ==
LOC: RAD 11:36
PROVIDERS: PCP Nurse Practitioner Family; Visit Provider Nurse Practitioner Family
DX: M54.16 Radiculopathy, lumbar region (principal)
CPT/HCPCS: 72114

== ENCOUNTER 2023-09-11 05:50 | Emergency (ER) | payer MEDICAID, SELFPAY ==
[2023-09-11 05:54] VITALS: PULSE 92; RESP 16; O2SAT 95; BMI 35.0
--- NOTE | 2023-09-11 05:55 | ECG_ITS ---
[facility] Test Date: 2023-09-11 Pat Name: Christy Barlow Department: Room: Gender: Female Presentation Team Member: : 1985 Requested By: Jessica Becker Order Number: [id number] Grant MD: Gil Matamoros M.D. Measurements Intervals [place] Rate: 88 P: 64 MN: 148 QRS: -13 QRSD: 86 T: 8 QT: 359 QTc: 436 Interpretive Statements SINUS RHYTHM POSSIBLE LEFT ATRIAL ENLARGEMENT [-0.1mV P-WAVE IN V1/V2] LOW QRS VOLTAGE IN PRECORDIAL LEADS [QRS DEFLECTION < 1.0 mV IN CHEST LEADS] POSSIBLE RIGHT VENTRICULAR CONDUCTION DELAY [RSR (QR) IN V1/V2] Compared to ECG 07/18/2022 09:49:22 Low QRS voltage now present Myocardial infarct finding no longer present Electronically Signed On 09-11-2023 10:58:23 EMS MANAGER by Gil Matamoros M.D. [id number]
[2023-09-11 05:58] VITALS: BP 120/71; TEMP 37.1
--- NOTE | 2023-09-11 06:05 | XRR_ITS ---
PROCEDURE INFORMATION: Exam: XR Chest Exam date and time: 09/11/2023 6:10 AM Age: 38 years old Clinical indication: Pain; Shortness of breath; Chest pressure; Prior surgery; Surgery date: 6+ months; Surgery type: Gb; Patient HX: C/O cp with SOB TECHNIQUE: Imaging protocol: Radiologic exam of the chest. Views: 1 view. COMPARISON: CT abdomen pelvis con [id number] 02/13/2022 10:46 AM FINDINGS: Lungs: Unremarkable. No consolidation. Pleural spaces: Unremarkable. No pleural effusion. No pneumothorax. Heart/Mediastinum: Unremarkable. No cardiomegaly. Bones/joints: Unremarkable. XR/XR chest 1V portable [id number] IMPRESSION: No acute findings.
--- NOTE | 2023-09-11 06:07 | W.ED.CHESTPA ---
HPI - Chest Pain General: Chief Complaint: Chest Pain Stated Complaint: Chest Pains Conjestions\Fever\Cough Time Seen by Provider: 09/11/23 05:59 Source: patient Mode of arrival: ambulatory Limitations: no limitations History of Present Illness: 38-year-old female states that over the last 2 to 3 days she has had cough congestion along with fever up to 102. Send some mild dyspnea states she had some soreness in her chest from coughing denies any vomiting or diarrhea no known sick contacts. Associated symptoms: Reports fever(s); Deny abdominal pain, dyspnea, nausea or vomiting Review of Systems Const: Reports: fever(s), chills and body aches; Denies: change in appetite ENMT: Reports: throat pain; Denies: dental pain Card: Denies: chest pain Resp: Reports: non-productive cough; Denies: dyspnea GI: Denies: abdominal pain, nausea, vomiting or diarrhea Musc: Denies: neck pain or back pain Skin/Breast: Denies: rash Neuro: Denies: headache(s) PFSH ED PFSH: Medical History Psychiatric care Migraines Depression Anxiety COPD (chronic obstructive pulmonary disease) Seasonal allergies Chronic GERD Surgical History History of carpal tunnel surgery of left wrist Hx of cholecystectomy Family History Father Diabetes Insulin Dependant Mother Diabetes Non insulin dependant CHF (congestive heart failure) Social History Smoking and tobacco/nicotine status: former use of tobacco/nicotine Physical Exam Const: COMMON NORMALS: no acute distress, patient oriented x3 and healthy appearing HENMT: COMMON NORMALS: normocephalic and atraumatic HEAD & SCALP: normocephalic and atraumatic THROAT: posterior oropharynx normal Neck/C-Spine: COMMON NORMALS: full ROM and supple Chest: COMMONS NORMALS: normal inspection of the chest Resp: COMMON NORMALS: normal respiratory effort, No retractions, No use of accessory muscles and clear to auscultation bilaterally AUSCULTATION: clear to auscultation bilaterally Cardio: COMMON NORMALS: regular rate, regular rhythm and No murmurs present (Cardio) RATE: regular rate RHYTHM: regular rhythm Extremity: COMMON NORMALS: normal to inspection and full ROM Neuro: COMMON NORMALS: patient oriented x3, moves all extremities and no focal motor deficits Psych: COMMON NORMALS: mental status grossly normal, Normal thought process present and cooperative THOUGHT PROCESS: Normal thought process present Skin: COMMON NORMALS: no rashes or lesions noted and no wounds GENERAL SKIN EXAM: no rashes or lesions noted Course Vital Signs: Vital signs: Vital Signs Temperature 98.7 F 09/11/23 05:58 Pulse Rate 92 09/11/23 05:54 Respiratory Rate 16 09/11/23 05:54 Blood Pressure 120/71 09/11/23 05:58 Pulse Oximetry 95 09/11/23 05:54 Oxygen Delivery Me thod Room Air 09/11/23 05:54 MDM - Chest Pain Medical Decision Making Patient presents with cough fever did test positive for influenza patient stable for discharge we will prescribe her Tamiflu she is well-appearing here in no respiratory distress x-ray is normal. She is return if worsening Medical Records I reviewed the patient's medical records. Lab Data I reviewed the patient's lab results. 09/11/23 05:59 09/11/23 05:59 Radiology Impressions Chest X-Ray 09/11/23 06:05 IMPRESSION: No acute findings. Laboratory Results WBC 5.76 10^3/uL (3.29-11.43) 09/11/23 05:59 RBC 4.44 10^6/uL (3.85-5.65) 09/11/23 05:59 Hgb 13.40 g/dL (11.27-16.99) 09/11/23 05:59 Hct 40.5 % (36-47) 09/11/23 05:59 MCV 91.2 fl (85-98) 09/11/23 05:59 MCH 30.2 pg (27-33) 09/11/23 05:59 MCHC 33.1 g/dL (30-55) 09/11/23 05:59 RDW 12.9 % (12.1-15.1) 09/11/23 05:59 Plt Count 196 10^3/cmm (157-399) 09/11/23 05:59 MPV 10.6 fL (7.4-10.4) H 09/11/23 05:59 Neut % (Auto) 80.0 % 09/11/23 05:59 Lymph % (Auto) 12.3 % 09/11/23 05:59 [place] % (Auto) 6.3 % 09/11/23 05:59 Eos % (Auto) 0.5 % 09/11/23 05:59 Baso % (Auto) 0.2 % 09/11/23 05:59 Neut # (Auto) 4.61 10^3/uL (1.8-7.7) 09/11/23 05:59 Lymph # (Auto) 0.7 10^3/uL (0.8-4.8) L 09/11/23 05:59 [place] # (Auto) 0.4 10^3/uL (0.2-0.9) 09/11/23 05:59 Eos # (Auto) 0.0 10^3/uL (0.0-0.8) 09/11/23 05:59 Baso # (Auto) 0.0 10^3/uL (0.0-0.1) 09/11/23 05:59 Nucleated RBC % (auto) 0 % 09/11/23 05:59 Nucleated RBCs # 0.0 /100WBC 09/11/23 05:59 Sodium 139 mmol/L (136-145) 09/11/23 05:59 Potassium 4.0 mmol/L (3.5-5.1) 09/11/23 05:59 Chloride 104 mmol/L (98-107) 09/11/23 05:59 Carbon Dioxide 23 mmol/L (22-29) 09/11/23 05:59 Anion Gap 16.0 (5-19) 09/11/23 05:59 BUN 6 mg/dL (6-20) 09/11/23 05:59 Creatinine 0.6 mg/dL (0.5-0.9) 09/11/23 05:59 GFR Calculation 111.3 mL/min (90-130) 09/11/23 05:59 Glucose 100 mg/dL (65-115) 09/11/23 05:59 Calculated Osmolality 286 mOsm/kg (285-295) 09/11/23 05:59 Calcium 9.0 mg/dL (8.5-10.5) 09/11/23 05:59 Total Bilirubin 0.4 mg/dL (0.15-1.2) 09/11/23 05:59 AST 104 U/L (0-32) H 09/11/23 05:59 ALT 60 U/L (0-33) H 09/11/23 05:59 Alkaline Phosphatase 117 U/L (35-105) H 09/11/23 05:59 Total Protein 7.4 g/dL (6.6-8.7) 09/11/23 05:59 Albumin 4.2 g/dL (3.5-5.2) 09/11/23 05:59 Globulin 3.2 g/dL (1.3-4.6) 09/11/23 05:59 Influenza Type A Ag positive (Negative) H 09/11/23 06:31 Influenza Type B Ag negative (Negative) 09/11/23 06:31 All radiology interpretation(s) finalized by discharge EKG Data EKG 1: I personally reviewed and interpreted this EKG as follows: EKG interpretation date: 09/11/23 EKG interpretation time: 05:55 Interpretation: nsr 88 no at or t wave abnormalities qrs 86 qtc 405 Discharge Plan Discharge Patient Disposition: Home Clinical Impression: Influenza A Condition: Stable Prescriptions: New Tamiflu 75 mg capsule 75 mg PO BID 5 Days Qty: 10 0RF No Action albuterol sulfate [ProAir HFA] 90 mcg/actuation HFA aerosol inhaler 2 puff inhalation QID PRN (Reason: shortness of breath or wheezing) Qty: 8.5 11RF clomipramine 50 mg capsule 50 mg PO .HS Qty: 30 1RF trazodone 50 mg tablet 100 mg PO .HS PRN (Reason: insomnia) Qty: 60 2RF Discharge Orders: Discharge ED (Routine); Ordered 09/11/23 Ordered By: Jessica Becker Discharge Diet: Advance as tolerated Discharge Activity: Resume usual activity Patient Instructions: Influenza (ED) Stand Alone Forms: Work/School Release Coding Level of Care Code ED [place] S[employer] for Lili Riojas
[2023-09-11 06:10] LABS: Basophils % 0.2 %; Eosinophils % 0.5 %; Hematocrit 40.5 % (36-47); Lymphocytes # 0.7 10^3/uL (0.8-4.8); Lymphocytes % 12.3 %; Mean Corpuscular HGB Conc 33.1 g/dL (30-55); Mean Corpuscular Hemoglobin 30.2 pg (27-33); Mean Corpuscular Volume 91.2 fl (85-98); Mean Platelet Volume 10.6 fL (7.4-10.4); Monocytes # 0.4 10^3/uL (0.2-0.9); Monocytes % 6.3 %; Neutrophils # 4.61 10^3/uL (1.8-7.7); Nucleated Red Blood Cells % 0 %; Platelet Count 196 10^3/cmm (157-399); Red Blood Count 4.44 10^6/uL (3.85-5.65); Red Cell Distribution Width 12.9 % (12.1-15.1); White Blood Count 5.76 10^3/uL (3.29-11.43)
[2023-09-11] MEDS: dexamethasone 10 mg/mL INJ IVP (06:20)
[2023-09-11 06:26] LABS: Alanine Aminotransferase 60 U/L (0-33); Albumin Level 4.2 g/dL (3.5-5.2); Alkaline Phosphatase 117 U/L (35-105); Aspartate Amino Transferase 104 U/L (0-32); Blood Urea Nitrogen 6 mg/dL (6-20); Carbon Dioxide 23 mmol/L (22-29); Chloride 104 mmol/L (98-107); Creatinine Clr Calc Pharmacy 148.9498; Globulin 3.2 g/dL (1.3-4.6); Glomerular Filtration Rate 111.3 mL/min (90-130); Glucose 100 mg/dL (65-115); Osmolality Calculated 286 mOsm/kg (285-295); Sodium 139 mmol/L (136-145); Total Bilirubin 0.4 mg/dL (0.15-1.2); Total Protein 7.4 g/dL (6.6-8.7)
[2023-09-11 06:43] LABS: Influenza A by IFA positive (Negative); Influenza B by IFA negative (Negative)
[2023-09-11 06:58] LABS: SARS Covid-2 Antigen negative (Negative)
== END 2023-09-11 07:00 | disposition home or self-care (01) ==
PROVIDERS: Emergency Provider Emergency Medicine
DX: J10.1 Influenza due to other identified influenza virus with other respiratory manifestations (principal); Z87.891 Personal history of nicotine dependence; J44.9 Chronic obstructive pulmonary disease, unspecified; Z11.52 Encounter for screening for COVID-19
CPT/HCPCS: 71045; 80053; 85025; 87426; 87804; 93005; 96374; 99285; J1100

== ENCOUNTER 2023-09-22 10:07 | Outpatient (CLI) | payer MEDICAID, SELFPAY ==
--- NOTE | 2023-09-22 10:17 | XR_ITS ---
WS: [id number] Lumbar spine, 3 views, 09/22/2023 Clinical Data: BACK PAIN Comparison: Lumbar spine, 09/06/2022 Findings: No compression fractures or subluxation is seen. There is disc space narrowing at L5-S1. The transve rse processes and SI joints are normal. There are cholecystectomy clips in the right upper quadrant. Impression: Degenerative disc narrowing at L5-S1.
== END 2023-09-22 10:08 | disposition home or self-care (01) ==
LOC: RAD 10:08
PROVIDERS: PCP Nurse Practitioner Family; Visit Provider Nurse Practitioner Family
DX: M54.16 Radiculopathy, lumbar region (principal); M51.37 Other intervertebral disc degeneration, lumbosacral region
CPT/HCPCS: 72100

== ENCOUNTER 2023-11-09 06:00 | Outpatient (RCR) | payer MEDICAID, SELFPAY | END 2023-12-06 23:59 | disposition home or self-care (01) | LOC: TPT 06:00 | PROVIDERS: Visit Provider Nurse Practitioner Family | DX: M54.9 Dorsalgia, unspecified (principal); G89.29 Other chronic pain | CPT/HCPCS: 97110; 97140; 97162 ==

== ENCOUNTER 2023-12-30 13:35 | Outpatient (CLI) | payer MEDICAID, SELFPAY ==
--- NOTE | 2023-12-30 13:39 | MR_ITS ---
WS: [id number] MRI LUMBAR SPINE NONCONTRAST TECHNIQUE: Sagittal T1, T2 and STIR imaging. Axial T1 and T2 imaging. CLINICAL INFORMATION: LUMBAR BACK PAIN WITH RADICULOPATHY COMPARISON: None. FINDINGS: Mild lumbar curve. No acute compression. No high-grade central canal stenosis. L5 is transitional and partially sacralized. Counting performed from the craniocervical junction. L1-L2: Mild annular bulging. Mild facet arthropathy. Spinal canal and foramen are patent. L2-L3: Mild annular bulging. Mild facet arthropathy. Tiny LEFT foraminal protrusion. Spinal canal and foramen are patent. L3-L4: Mild annular bulging. Slight effacement of the ventral thecal sac. Small LEFT foraminal protru david with mild LEFT foraminal narrowing. Spinal canal and RIGHT foramen are patent. Mild facet arthro sotero. L4-L5: Mild annular bulging with slight effacement of ventral thecal sac. Mild facet arthropathy. Spi nal canal and foramen are patent. L5-S1: L5 is transitional and partially sacralized. Spinal canal and foramen are patent. Mild facet a rthropathy. Visualized pelvic bony structures: Normal. Paravertebral soft tissues: Normal. Tiny central disc protrusion in the cervical spine buckle sewer imaging at C5-C6 and C6-C7. MR/MR lumbar spine wo con* [id number] IMPRESSION: 1. L5 is transitional and partially sacralized. 2. Tiny LEFT foraminal protrusions at L2-3 and L3-4. Slight encroachment on th e exiting LEFT L3 nerve root. 3. Mild facet arthropathy L3-L5. 4. No significant central canal stenosis.
== END 2023-12-30 13:36 | disposition home or self-care (01) ==
LOC: RAD 13:35
PROVIDERS: Visit Provider Nurse Practitioner Family
DX: M54.16 Radiculopathy, lumbar region (principal); Q76.49 Other congenital malformations of spine, not associated with scoliosis; M51.36 Other intervertebral disc degeneration, lumbar region; M47.816 Spondylosis without myelopathy or radiculopathy, lumbar region; M51.26 Other intervertebral disc displacement, lumbar region; M48.061 Spinal stenosis, lumbar region without neurogenic claudication; M47.817 Spondylosis without myelopathy or radiculopathy, lumbosacral region
CPT/HCPCS: 72148

== ENCOUNTER → 2024-06-19 13:25 | Outpatient (BNVA) | payer OTHER, MEDICAID, SELFPAY | PROVIDERS: PCP Nurse Practitioner Family; Visit Provider Orthopaedic Surgery | DX: M48.062 Spinal stenosis, lumbar region with neurogenic claudication (principal) | CPT/HCPCS: 72110 ==

== ENCOUNTER 2025-03-20 10:24 | Emergency (ER) | payer OTHER, MEDICAID, SELFPAY ==
--- NOTE | 2025-03-20 10:26 | XR_ITS ---
WS: [id number] Portable AP upright chest, 03/20/2025 Clinical Data: cp Comparison: Portable chest, 09/11/2023 Findings: No nodules, masses or effusions are seen. The heart is normal. The pulmonary vascularity is not increased. No pneumonia or pneumothorax is seen. XR/XR chest 1V portable [id number] Impression: Negative chest.
--- NOTE | 2025-03-20 10:26 | ECG_ITS ---
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1985 Requested By: Jessica Becker Order Number: [id number] Reading MD: Measurements Intervals [place] Rate: 92 P: 62 GA: 132 QRS: -11 QRSD: 81 T: 10 QT: 349 QTc: 433 Interpretive Statements SINUS RHYTHM POSSIBLE LEFT ATRIAL ENLARGEMENT [-0.1mV P-WAVE IN V1/V2] LOW QRS VOLTAGE IN PRECORDIAL LEADS [QRS DEFLECTION < 1.0 mV IN CHEST LEADS] PATTERN CONSISTENT WITH PULMONARY DISEASE POSSIBLE RIGHT VENTRICULAR CONDUCTION DELAY [RSR (QR) IN V1/V2] No previous ECG available for comparison [id number]
[2025-03-20 10:33] VITALS: BP 133/83; PULSE 91; RESP 18; TEMP 36.6; O2SAT 97; BMI 33.7
[2025-03-20 10:55] LABS: Hematocrit 40.0 % (36-47); Hemoglobin 13.10 g/dL (11.27-16.99); Mean Corpuscular HGB Conc 32.8 g/dL (30-55); Mean Corpuscular Hemoglobin 29.8 pg (27-33); Mean Corpuscular Volume 90.9 fl (85-98); Nucleated Red Blood Cells % 0 %; Platelet Count 267 10^3/cmm (157-399); Red Blood Count 4.40 10^6/uL (3.85-5.65); White Blood Count 9.62 10^3/uL (3.29-11.43)
[2025-03-20 11:17] LABS: Troponin(5th) Baseline < 6 ng/L (0-10)
[2025-03-20 11:21] VITALS: BP 135/85; PULSE 84; RESP 20; O2SAT 95
[2025-03-20 11:23] LABS: Alanine Aminotransferase 13 U/L (0-33); Albumin Level 4.5 g/dL (3.5-5.2); Alkaline Phosphatase 74 U/L (35-105); Anion Gap 15.1 (5-19); Aspartate Amino Transferase 14 U/L (0-32); Blood Urea Nitrogen 9 mg/dL (6-20); Calcium 9.0 mg/dL (8.5-10.5); Carbon Dioxide 21 mmol/L (22-29); Chloride 106 mmol/L (98-107); Creatinine Clr Calc Pharmacy 143.1727; Globulin 2.6 g/dL (1.3-4.6); Glucose 105 mg/dL (65-115); Lipase 19 U/L (13-60); Osmolality Calculated 285 mOsm/kg (285-295); Potassium 4.1 mmol/L (3.5-5.1); Sodium 138 mmol/L (136-145); Total Protein 7.1 g/dL (6.6-8.7)
--- NOTE | 2025-03-20 11:23 | W.ED.GENADLT ---
HPI - General Adult General: Chief complaint: General Medical Stated complaint: heart fluttering,sob,tunnel vision, chest pressure Time Seen by Provider: 03/20/25 11:13 History of Present Illness: Chief complaint is episode of lightheadedness like her heart was racing chest pressure and sweating. Patient states this occurred just prior to arrival. Symptoms have resolved. No history of heart problems herself. Related Data Home Medications ?Medication ?Instructions ?Recorded ?Confirmed epinephrine 0.3 mg/0.3 mL 0.3 ml IM ONCE PRN 10/08/24 02/20/25 injection, auto-injector ketoconazole 2 % shampoo 1 applic topical ONCE 10/08/24 02/20/25 Previous Rx's ?Medication ?Instructions ?Recorded albuterol sulfate 90 mcg/actuation 2 puff inhalation QID PRN 01/15/22 aerosol inhaler (ProAir HFA) shortness of breath or wheezing #8.5 grams ibuprofen 800 mg tablet 800 mg PO Q8H PRN pain #90 tabs 12/14/24 baclofen 5 mg tablet 10 mg (2 x 5 mg) PO BID PRN muscle 01/17/25 spasm #60 tabs lidocaine 5 % topical patch 2 patch topical DAILY PRN back 01/17/25 pain #15 ea topiramate 50 mg tablet 50 mg PO BID PRN nerve pain #120 01/17/25 tabs Allergies Allergy/AdvReac Type Severity Reaction Status Date / Time No Known Allergies Allergy Verified 02/20/25 13:09 [facility] ED PFSH: Medical History (Updated 03/20/25 @ 13:18 by Gab Courtney MD) Psychiatric care Migraines Depression Anxiety COPD (chronic obstructive pulmonary disease) Seasonal allergies Chronic GERD Surgical History History of carpal tunnel surgery of left wrist Hx of cholecystectomy Family History Father Diabetes Insulin Dependant Mother Diabetes Non insulin dependant Congestive heart failure (CHF) Social History Smoking and tobacco/nicotine status: current every day tobacco/nicotine user e-cigarettes E-Cigarette Details: vaporizer device Physical Exam Narrative: EXAM NARRATIVE: Alert oriented talkative no acute distress. Neck is supple. Normal conjunctiva. Pupils equal and reactive. Full range ocular motion. Neck is supple. Heart regular rhythm. Lung sounds are clear. Normal respiratory pattern. Abdomen soft nontender no guarding or rebound. No palpable mass. Moist mucous membranes. Skin is warm with no rash in exposed areas. Extremities warm well-perfused. No calf tenderness or pitting edema. She moves her arms and legs freely. No drift in her arms. Speech is clear. No facial droop. No ataxia. Grossly intact cerebellar function. Denies suicidal homicidal thoughts. Alert and oriented x 4. No sweating. Course Vital Signs: Vital signs: Vital Signs Temperature 97.8 F 03/20/25 10:33 Pulse Rate 78 03/20/25 13:00 Respiratory Rate 18 03/20/25 11:30 Blood Pressure 110/66 03/20/25 13:00 Pulse Oximetry 98 03/20/25 13:00 Oxygen Delivery Me thod Room Air 03/20/25 13:00 MDM - General Adult Medical Decision Making Patient states that she has not been feeling well in general for a few weeks because her blood pressure has been up. She states she has had some headaches off and on. No sudden or severe headaches. No history of aneurysms. She has strong family history of heart disease she tells me and she does vape. She denies having diabetes high blood pressure high cholesterol. She denies any possible . Denies being on hormone therapy or control. Denies recent mobility or leg pain or swelling or hemoptysis or history of PE or DVT to suggest PE. Will screen a D-dimer however as she had palpitations and some shortness of breath with this episode. She states she was getting into her car and she started breaking out in a sweat and then started feeling like her heart was racing and felt short of breath and felt lightheaded and started to feel like her vision was going out like she might pass out. She states that she had some tightness in her left chest that radiated up into the left shoulder. Did not radiate into the back. It was not sharp or tearing but just a pressure. She states there is no pain. No abdominal pain. No black bloody stools. No fever or recent illness. No history of cardiac dysrhythmia. No recent vomiting or diarrhea or dehydration or heat exposure. No drug or alcohol use or [id number] medication other than ibuprofen. She states she does not take any medications at all currently other than ibuprofen. Patient is alert oriented intact neurologic exam. She is currently asymptomatic except for a dull headache. Headaches have not been sudden onset or worse suggestive pattern of ruptured aneurysm or sentinel leak or subarachnoid. She is not having waking headache suggestive of mass occupying lesion. She denies any known significant blood loss. No heavy periods. She states she is not . Denies black or bloody stools. Certainly anemia could contribute to her symptoms. Advised patient cardiac dysrhythmia considered including potential serious and life-threatening cardiac dysrhythmias that cannot be ruled out here in the emergency department if they do not recur. Advised patient [place], PE, dehydration, heat exposure, near syncope with its broad differentials, extremely broad differential. Not suggestive of dissection. Patient is in a sinus rhythm on the monitor. Patient EKG is ordered and to my interpretation shows sinus rhythm with rate [address] segment changes. CBC CMP D-dimer and troponin and chest x-ray and test ordered. Patient given 1 L normal saline IV fluid bolus. I suspect patient had near syncopal event by her description. Advised patient I cannot exclude serious life-threatening cardiac dysrhythmias. I discussed with her treatment plan and options and evaluation. Patient is agreement with plan after informed discussion. Patient's white count is normal. Patient not significantly anemic. Electrolytes did not show significant abnormality. Troponin is negative. Lipase is not elevated. Delta troponin is pending. Delta troponin is negative. Urinalysis had ketones. Bicarb is mildly low. This is consistent with some dehydration. Patient states she still feels slight lightheadedness but otherwise asymptomatic. Her blood pressure sitting was 110 systolic and I had her stand up and her blood pressure was 130 standing up. I discussed with the patient admission to the hospital for continued cardiac monitoring and further evaluation and advised limits of ED evaluation and I cannot exclude life-threatening cardiac dysrhythmia as cause of her symptoms. Patient expressed understanding that wants to follow-up outpatient. I advised activity restrictions outpatient follow-up and return instructions. Patient capable and informed. Lab Data 03/20/25 10:45 03/20/25 10:45 Radiology Impressions Chest X-Ray 03/20/25 10:26 Impression: Negative chest. Laboratory Results WBC 9.62 10^3/uL (3.29-11.43) 03/20/25 10:45 RBC 4.40 10^6/uL (3.85-5.65) 03/20/25 10:45 Hgb 13.10 g/dL (11.27-16.99) 03/20/25 10:45 Hct 40.0 % (36-47) 03/20/25 10:45 MCV 90.9 fl (85-98) 03/20/25 10:45 MCH 29.8 pg (27-33) 03/20/25 10:45 MCHC 32.8 g/dL (30-55) 03/20/25 10:45 RDW 12.6 % (12.1-15.1) 03/20/25 10:45 Plt Count 267 10^3/cmm (157-399) 03/20/25 10:45 MPV 10.8 fL (7.4-10.4) H 03/20/25 10:45 Neut % (Auto) 70.1 % 03/20/25 10:45 Lymph % (Auto) 24.1 % 03/20/25 10:45 [place] % (Auto) 4.4 % 03/20/25 10:45 Eos % (Auto) 0.4 % 03/20/25 10:45 Baso % (Auto) 0.7 % 03/20/25 10:45 Neut # (Auto) 6.74 10^3/uL (1.8-7.7) 03/20/25 10:45 Lymph # (Auto) 2.3 10^3/uL (0.8-4.8) 03/20/25 10:45 [place] # (Auto) 0.4 10^3/uL (0.2-0.9) 03/20/25 10:45 Eos # (Auto) 0.0 10^3/uL (0.0-0.8) 03/20/25 10:45 Baso # (Auto) 0.1 10^3/uL (0.0-0.1) 03/20/25 10:45 Nucleated RBC % (auto) 0 % 03/20/25 10:45 Nucleated RBCs # 0.0 /100WBC 03/20/25 10:45 D-Dimer <= 0.27 ug/mLFEU (0-0.59) 03/20/25 10:45 Sodium 138 mmol/L (136-145) 03/20/25 10:45 Potassium 4.1 mmol/L (3.5-5.1) 03/20/25 10:45 Chloride 106 mmol/L (98-107) 03/20/25 10:45 Carbon Dioxide 21 mmol/L (22-29) L 03/20/25 10:45 Anion Gap 15.1 (5-19) 03/20/25 10:45 BUN 9 mg/dL (6-20) 03/20/25 10:45 Creatinine 0.6 mg/dL (0.5-0.9) 03/20/25 10:45 GFR Calculation 110.2 mL/min (90-130) 03/20/25 10:45 Glucose 105 mg/dL (65-115) 03/20/25 10:45 Calculated Osmolality 285 mOsm/kg (285-295) 03/20/25 10:45 Calcium 9.0 mg/dL (8.5-10.5) 03/20/25 10:45 Magnesium 1.8 mg/dL (1.7-2.3) 03/20/25 10:45 Total Bilirubin 0.4 mg/dL (0.15-1.2) 03/20/25 10:45 AST 14 U/L (0-32) 03/20/25 10:45 ALT 13 U/L (0-33) 03/20/25 10:45 Alkaline Phosphatase 74 U/L (35-105) 03/20/25 10:45 Troponin T Baseline < 6 ng/L (0-10) 03/20/25 10:45 Troponin T 120 Minute < 6.0 ng/L (0-10) 03/20/25 12:23 Delta Troponin T 0 ABS# (0-10) 03/20/25 12:23 Total Protein 7.1 g/dL (6.6-8.7) 03/20/25 10:45 Albumin 4.5 g/dL (3.5-5.2) 03/20/25 10:45 Globulin 2.6 g/dL (1.3-4.6) 03/20/25 10:45 Lipase 19 U/L (13-60) 03/20/25 10:45 TSH 1.05 uIU/mL (0.27-4.20) 03/20/25 10:45 HCG, Qual Negative (Negative) 03/20/25 10:45 Urine Color Yellow (Yellow) 03/20/25 12:38 Urine Appearance Clear (CLEAR) 03/20/25 12:38 Urine pH 5.5 (5-7) 03/20/25 12:38 Ur Specific [place] 1.019 (1.005-1.030) 03/20/25 12:38 Urine Protein Negative (Negative) 03/20/25 12:38 Urine Glucose (UA) Negative (Normal) 03/20/25 12:38 Urine Ketones 1+ (Negative) H 03/20/25 12:38 Urine Blood Negative (Negative) 03/20/25 12:38 Urine Nitrate Negative (Negative) 03/20/25 12:38 Urine Bilirubin Negative (Negative) 03/20/25 12:38 Urine Urobilinogen 1.0 mg/dL (Negative) 03/20/25 12:38 Ur Leukocyte Esterase Trace (Negative) A 03/20/25 12:38 Urine RBC 0-2 /hpf (0-2) 03/20/25 12:38 Urine WBC 0-5 /hpf (0-5) 03/20/25 12:38 Ur Squamous Epith Cells 0-5 /hpf (0-5) 03/20/25 12:38 Amorphous Sediment Not Reportable 03/20/25 12:38 Urine Bacteria Trace /hpf (NONE) 03/20/25 12:38 Hyaline Casts 0.40 /lpf 03/20/25 12:38 No radiology studies performed this visit Discharge Plan Discharge Patient Disposition: Home Clinical Impression: Near syncope Condition: Stable Prescriptions: No Action albuterol sulfate [ProAir HFA] 90 mcg/actuation HFA aerosol inhaler 2 puff inhalation QID PRN (Reason: shortness of breath or wheezing) Qty: 8.5 11RF topiramate 50 mg tablet 50 mg PO BID PRN (Reason: nerve pain) Qty: 120 0RF lidocaine 5 % adhesive patch,medicated 2 patch topical DAILY PRN (Reason: back pain) Qty: 15 2RF Rx Instructions: leave on most painful area for up to 12 hrs baclofen 5 mg tablet 10 mg PO BID PRN (Reason: muscle spasm) Qty: 60 0RF ketoconazole 2 % shampoo 1 applic topical ONCE epinephrine 0.3 mg/0.3 mL auto-injector 0.3 ml IM ONCE PRN ibuprofen 800 mg tablet 800 mg PO Q8H PRN (Reason: pain) Qty: 90 0RF Discharge Orders: Discharge ED (Routine); Ordered 03/20/25 Ordered By: Gab Courtney Referrals: Laura Null FNP [Primary Care Provider, Family Practice] Patient Instructions: Opioid Safety, Pain Management, Patient Portal & Megan Instructions Activity Restrictions/Additional Instructions: Avoid heights driving and operating machinery, heat, exertion. Follow-up on your test results with your doctor. Please return immediately if feeling like passing out, chest pain, shortness of breath, concerning headache, weakness in your arms or legs, change in vision, any new or worsening symptoms or concerns as discussed. Please follow-up with your doctor this week. Stand Alone Forms: Work/School Release Print Language: Japanese Coding Level of Care Code ED Direct Support Staff for Lili Rioajs
[2025-03-20 11:30] VITALS: BP 116/77; PULSE 88; RESP 18; O2SAT 98
[2025-03-20 11:48] LABS: HCG, Serum Qual Negative (Negative)
[2025-03-20 12:06] LABS: Magnesium 1.8 mg/dL (1.7-2.3); Thyroid Stimulating Hormone 1.05 uIU/mL (0.27-4.20)
[2025-03-20 12:30] VITALS: BP 110/59; PULSE 81; O2SAT 98
--- NOTE | 2025-03-20 12:36 | ECG_ITS ---
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
[2025-03-20 12:48] LABS: Troponin 5 2HR < 6.0 ng/L (0-10); Troponin 5 2HR Delta 0 ABS# (0-10)
[2025-03-20 13:00] VITALS: BP 110/66; PULSE 78; O2SAT 98
[2025-03-20 13:02] LABS: Glucose Urine UA Negative (Normal); Nitrate Urine Negative (Negative); Specific Gravity, Urine 1.019 (1.005-1.030)
[2025-03-20 13:07] LABS: Add Urine Microscopic? YES
[2025-03-20 13:36] VITALS: BP 118/68; PULSE 79; O2SAT 98
== END 2025-03-20 13:37 | disposition home or self-care (01) ==
PROVIDERS: Emergency Medicine; Emergency Provider Emergency Medicine; PCP Nurse Practitioner Family
DX: R55 Syncope and collapse (principal); F17.290 Nicotine dependence, other tobacco product, uncomplicated; J44.9 Chronic obstructive pulmonary disease, unspecified
CPT/HCPCS: 36415; 71045; 80053; 81001; 83690; 83735; 84443; 84484; 84703; 85025; 85378; 93005; 96360; 96361; 99285; J7030